=== PATIENT | male | born 1985 | race African-American/Black ===

== ENCOUNTER 2020-12-02 08:05 | Emergency (ER) | payer MEDICAID ==
[~2020-12-02] VITALS: Ht 180.3 cm; Wt 68.0 kg
[2020-12-02 08:08] VITALS: BP 112/79
[2020-12-02] MEDS ORDERED: KETOROLAC 30MG/ML VIAL IM ONE (08:45)
== END 2020-12-02 09:30 | disposition home or self-care (01) ==
LOC: ER 08:05
DX: Z98.890 Other specified postprocedural states (principal); M54.5 Low back pain
CPT/HCPCS: 72100; 96372; 99283; J1885